=== PATIENT | female | born 1930 | race Caucasian/White ===

== ENCOUNTER 2021-04-13 18:32 | Observation (INO) ==
[2021-04-13] MEDS ORDERED: Ondansetron 4 MG/2 ML VIAL IVP PRN (21:32)
[2021-04-13] MEDS ORDERED: Acetaminophen 325 MG TABLET PO PRN (21:32)
[2021-04-13] MEDS ORDERED: Naloxone 0.4 MG/ML INJ IVP PRN (21:32)
[2021-04-13] MEDS ORDERED: Nitroglycerin 0.4 MG TAB.SUBL SL PRN (22:10)
[2021-04-13] MEDS ORDERED: Perflutren Lipid Microsphere 1.3 ML in 0.9 % Sodium Chloride 8.7 ML IVP PRN (22:31)
[2021-04-13 22:32] LABS: Mixed Venous Blood pCO2 59 mmHg (44-46); Mixed Venous Blood pH 7.26 pH Units (7.34-7.36); Mixed Venous Blood pO2 47 mmHg (35-45)
[2021-04-13] MEDS: DilTIAZem 50 MG/50 ML IV.SOLN IVC SCH (22:32)
[2021-04-13] MEDS ORDERED: Dextrose Gel 15 GM/37.5 ML TUBE PO PRN ×2 (22:36)
[2021-04-13] MEDS ORDERED: D5% in Water 1,000 ML IVC PRN (22:36)
[2021-04-13] MEDS ORDERED: *HR* Dextrose 50 % in Water (Syg) 50 ML SYRINGE IVP PRN (22:36)
[2021-04-14] MEDS: Ipratropium/Albuterol Neb 3 ML IH SCH ×7 (00:01→23:15)
[2021-04-14] MEDS: Insulin LISPRO 300 UNITS/3 ML VIAL SUBQ SCH ×4 (02:24→18:32)
[2021-04-14] MEDS: DilTIAZem 50 MG/50 ML IV.SOLN IVC SCH ×5 (02:50→23:43)
[2021-04-14] MEDS: *HR* Enoxaparin 80 MG/0.8 ML SYRINGE SQ SCH ×3 (02:50→20:53)
[2021-04-14 03:35] LABS: Hematocrit 44.4 % (35.3-44.9); Mean Corpuscular HGB Conc 31.5 g/dL (31.6-35.5); Mean Corpuscular Hemoglobin 32.9 pg (28.0-33.3); Mean Corpuscular Volume 104.2 fL (83.0-100.0); Mean Platelet Volume 10.8 fL (9.4-12.4); Platelet Count 219 K/mcL (140-400); Red Blood Count 4.26 M/mcL (3.82-4.97); Red Cell Distribution Width 13.1 % (11.5-14.5); White Blood Count 9.9 K/mcL (4.3-11.1)
[2021-04-14 03:58] LABS: Calcium 9.4 mg/dL (8.6-10.3); Potassium 4.6 mEq/L (3.5-5.1)
[2021-04-14] MEDS ORDERED: Furosemide 40 MG/4 ML VIAL IVP SCH (09:00)
[2021-04-14 09:16] LABS: Estimated Average Glucose 126 mg/dl
[2021-04-14] MEDS ORDERED: Furosemide 20 MG/2 ML VIAL IVP SCH (10:15)
[2021-04-15] MEDS: Insulin LISPRO 300 UNITS/3 ML VIAL SUBQ SCH ×4 (00:51→17:37)
[2021-04-15] MEDS: Ipratropium/Albuterol Neb 3 ML IH SCH ×6 (03:55→23:52)
[2021-04-15] MEDS: DilTIAZem 50 MG/50 ML IV.SOLN IVC SCH ×2 (04:32→09:21)
[2021-04-15] MEDS: *HR* Enoxaparin 80 MG/0.8 ML SYRINGE SQ SCH (09:24)
[2021-04-15 10:05] LABS: Basophils % 0.5 %; Eosinophils # 0.3 K/mcL (0.0-0.6); Eosinophils % 3.6 %; Hemoglobin 13.4 g/dL (11.5-15.4); Immature Granulocytes % 0.3 % (0-4); Lymphocytes # 1.5 K/mcL (0.6-4.6); Lymphocytes % 19.6 %; Mean Corpuscular HGB Conc 32.7 g/dL (31.6-35.5); Mean Corpuscular Hemoglobin 32.4 pg (28.0-33.3); Mean Platelet Volume 10.8 fL (9.4-12.4); Monocytes # 0.9 K/mcL (0.0-1.3); Neutrophils # 5.1 K/mcL (1.6-8.9); Platelet Count 194 K/mcL (140-400); Red Blood Count 4.14 M/mcL (3.82-4.97); Red Cell Distribution Width 13.5 % (11.5-14.5); White Blood Count 7.8 K/mcL (4.3-11.1)
[2021-04-15 10:23] LABS: Magnesium 1.9 mg/dL (1.6-2.6); Potassium 3.5 mEq/L (3.5-5.1)
[2021-04-15] MEDS: Apixaban 5 MG TABLET PO SCH (21:00)
[2021-04-16] MEDS: Insulin LISPRO 300 UNITS/3 ML VIAL SUBQ SCH ×4 (00:18→18:42)
[2021-04-16] MEDS: Ipratropium/Albuterol Neb 3 ML IH SCH ×6 (04:05→23:54)
[2021-04-16] MEDS: Apixaban 5 MG TABLET PO SCH ×2 (08:15→21:30)
[2021-04-16] MEDS ORDERED: *HR* Enoxaparin 80 MG/0.8 ML SYRINGE SQ SCH (09:00)
[2021-04-16] MEDS ORDERED: Furosemide 20 MG TABLET PO PRN (09:04)
[2021-04-16] MEDS: DilTIAZem CD (24hr) 120 MG CAP.ER.24H PO SCH (10:07)
[2021-04-16 12:01] LABS: Basophils % 0.5 %; Eosinophils # 0.6 K/mcL (0.0-0.6); Eosinophils % 7.1 %; Hematocrit 40.8 % (35.3-44.9); Hemoglobin 13.2 g/dL (11.5-15.4); Immature Granulocytes % 0.1 % (0-4); Lymphocytes # 1.5 K/mcL (0.6-4.6); Lymphocytes % 19.3 %; Mean Corpuscular HGB Conc 32.4 g/dL (31.6-35.5); Mean Corpuscular Hemoglobin 32.8 pg (28.0-33.3); Mean Corpuscular Volume 101.5 fL (83.0-100.0); Mean Platelet Volume 10.5 fL (9.4-12.4); Monocytes % 12.3 %; Neutrophils # 4.7 K/mcL (1.6-8.9); Platelet Count 205 K/mcL (140-400); Red Blood Count 4.02 M/mcL (3.82-4.97); Red Cell Distribution Width 13.2 % (11.5-14.5); Segmented Neutrophils % 60.7 %; White Blood Count 7.7 K/mcL (4.3-11.1)
[2021-04-16 12:44] LABS: BUN/Creatinine Ratio 24 (6-26); Blood Urea Nitrogen 24 mg/dL (8-23); Calcium 9.1 mg/dL (8.6-10.3); Carbon Dioxide 26 mEq/L (23-29); Chloride 104 mEq/L (98-107); Glucose 133 mg/dL (70-105); Osmolality,Calculated 294 (280-300); Sodium 139 mEq/L (136-145); eGFR For African Americans > 60 (> 60); eGFR For Non-African Americans 54 (> 60)
[2021-04-17] MEDS: Ipratropium/Albuterol Neb 3 ML IH SCH ×4 (04:00→15:08)
[2021-04-17 06:09] LABS: Adenovirus Not Detected (Not Detect); Coronavirus 229E Not Detected (Not Detect); Coronavirus HKU1 Not Detected (Not Detect); Coronavirus NL63 Not Detected (Not Detect); Coronavirus OC43 Not Detected (Not Detect); Human Metapneumovirus Not Detected (Not Detect); Human Rhinovirus/Enterovirus Not Detected (Not Detect); Influenza A Subtype 2009 H1 Not Detected (Not Detect); SARS-CoV-2 Not Detected (Not Detect)
[2021-04-17 06:10] LABS: Bordetella Pertussis Not Detected (Not Detect); Chlamydophila pneumoniae Not Detected (Not Detect); Influenza B Not Detected (Not Detect); Mycoplasma pneumoniae Not Detected (Not Detect); Parainfluenza Virus 1 Not Detected (Not Detect); Parainfluenza Virus 2 Not Detected (Not Detect); Parainfluenza Virus 3 Not Detected (Not Detect); Parainfluenza Virus 4 Not Detected (Not Detect); Respiratory Syncytial Virus Not Detected (Not Detect)
[2021-04-17] MEDS: Apixaban 5 MG TABLET PO SCH (07:26)
[2021-04-17] MEDS: DilTIAZem CD (24hr) 120 MG CAP.ER.24H PO SCH (07:26)
[2021-04-17] MEDS: Insulin LISPRO 300 UNITS/3 ML VIAL SUBQ SCH ×2 (07:29→11:45)
[2021-04-17 11:27] VITALS: TEMP 98
[2021-04-17 15:55] VITALS: BP 131/75; PULSE 116; O2SAT 94
== END 2021-04-17 16:20 | disposition home or self-care (01) ==
LOC: 3NENU → SUATTDRO 20:16
PROVIDERS: ADMIT Internal Medicine; ATTEND Internal Medicine